=== PATIENT | female | born 1990 | race Caucasian/White ===

== ENCOUNTER 2020-01-18 15:43 | Emergency (ER) | payer BC, SELFPAY ==
[2020-01-18 15:59] VITALS: BP 112/75; PULSE 107; RESP 18; TEMP 37.4; O2SAT 100
--- NOTE | 2020-01-18 16:00 | ED.URI ---
HPI - URI/Sore Throat General Chief Complaint: Upper Respiratory Infection Stated Complaint: sore throat/stuffy nose/fatigue/slight cough History of Present Illness HPI Narrative: This is a 29-year-old female comes in complaining of fatigue cough pharyngitis headache not feeling well patient states that she feels warm every now and then and has had some chills at nighttime. Patient denies any nausea vomiting and/or diarrhea Related Data Allergies Allergy/AdvReac Type Severity Reaction Status Date / Time No Known Allergies Allergy Unverified 01/31/19 18:07 Review of Systems Review of Systems: Narrative: CONSTITUTIONAL: Report fever, chills, or sweats. EYES: Denies visual changes, redness, or discharge. ENT: Reports rhinorrhea, congestion, sore throat, or otalgia. CARDIOVASCULAR:Denies chest pain, palpitations, or edema. RESPIRATORY: Reports cough or dyspnea. GASTROINTESTINAL: Denies abdominal pain, nausea, vomiting, or diarrhea. GENITOURINARY: Denies dysuria or hematuria. SKIN:[Denies rash or itching. MUSCULOSKELETAL:Denies back pain, joint pain, or myalgia. NEUROLOGIC: Denies headache, numbness, or weakness. PSYCHIATRIC:Denies anxiety or depression PMFSH Comments At time as signature, I have reviewed and agree with nursing past medical, social, surgical and family history. Please see nursing chart for further information. There is no relevant family history pertinent to the presenting complaint. Exam Narrative: Exam Narrative: GENERAL:Well-appearing, well-nourished, and in no acute distress. HEAD:Normocephalic, atraumatic. EYES: PERRLA and EOMI. ENT: Nares clear, no rhinorrhea or epistaxis. Mucous membranes moist. Postnasal drip slight pharyngeal erythema NECK: Supple. CHEST: Clear to auscultation. No respiratory distress. HEART: Regular rate and rhythm. No murmur heard. Normal peripheral pulses. ABDOMEN: Soft, nontender, nondistended, normal active bowel sounds. EXTREMITIES: Normal range of motion. No edema. SKIN: Warm, dry, no rash. NEURO: No focal deficits. Alert and oriented x3. Course Vital Signs Vital signs: Vital Signs Temperature 99.4 F 01/18/20 15:59 Pulse Rate 107 H 01/18/20 15:59 Respiratory Rate 18 01/18/20 15:59 Blood Pressure 112/75 01/18/20 15:59 Pulse Oximetry 100 01/18/20 15:59 Temperature 99.4 F 01/18/20 15:59 Pulse Rate 107 H 01/18/20 15:59 Respiratory Rate 18 01/18/20 15:59 Blood Pressure 112/75 01/18/20 15:59 Pulse Oximetry 100 01/18/20 15:59 MDM - URI/Sore Throat Differential Diagnosis Differential diagnosis: Likely upper respiratory infection, sinusitis, viral infection, bronchitis and pharyngitis Discharge Plan Discharge Clinical Impression: Pharyngitis Patient Disposition: Home, Self-Care Condition: Stable Instructions: Antibiotic Form, Pharyngitis (ED) Additional Instructions: Your strep test today was negative. A throat culture will be sent to the laboratory for further testing. IF the test is positive, you will receive a phone call within 48 hours and an appropriate antibiotic will be initiated at that time. You will not receive a phone call if the test is negative. Until the throat culture proves otherwise, you should proceed with treating this is as a viral pharyngitis. Salt water gargles may alleviate some of your throat discomfort. Take Tylenol and/or ibuprofen per the package instructions for pain/fever. Go to the ER if your symptoms become worse of if ANY new symptoms develop Prescriptions: New loratadine [Claritin] 10 mg tablet 10 mg PO DAILY PRN (Reason: allergy symptoms) Qty: 30 RF: 0 Follow-up/Referrals: UNKNOWN,DOCTOR [Primary Care Provider] - Stand Alone Forms: Work/School Release IP Time of Disposition: 16:16 Discharge Date/Time: 01/18/20 16:18
== END 2020-01-18 16:18 | disposition home or self-care (01) ==
PROVIDERS: Emergency Provider Nurse Practitioner Family
DX: J02.9 Acute pharyngitis, unspecified (principal)
CPT/HCPCS: 87081; 87880; 99213; G0463

== ENCOUNTER 2023-04-24 13:33 | Outpatient (CLI) | payer OTHER, SELFPAY ==
[2023-04-24 14:24] LABS: Hematocrit 35.4 % (37.0-47.0); Hemoglobin 11.2 g/dL (12.0-15.0); Mean Corpuscular HGB Conc 31.6 g/dl (32-36); Mean Corpuscular Hemoglobin 27.7 pg (26-34); Mean Corpuscular Volume 87.6 fl (80-100); Mean Platelet Volume 11.3 fl (7.4-10.4); Platelet Count Result 265 k/mm3 (150-375); Red Blood Count 4.04 M/mm3 (4.2-5.4); Red Cell Distribution Width 13.5 % (11.5-14.5); White Blood Count 11.1 K/mm3 (4.5-10.0)
[2023-04-25 13:25] LABS: Rapid Plasma Reagin Non-Reactive (NonReactive)
== END 2023-04-24 13:34 | disposition home or self-care (01) ==
PROVIDERS: Visit Provider Obstetrics & Gynecology
DX: Z01.812 Encounter for preprocedural laboratory examination (principal)
CPT/HCPCS: 36415; 85027; 86592; 86850; 86900; 86901

== ENCOUNTER 2023-04-25 10:03 | Inpatient (IN) | payer OTHER, SELFPAY ==
[2023-04-25] VITALS (44 sets, daily range): BP systolic 80–123; BP diastolic 43–76; PULSE 56–97; RESP 16–18; TEMP 36.2–36.4; O2SAT 96–100; BMI 47.2
--- NOTE | 2023-04-25 10:42 | P.PNAN_ITS ---
Anes - Initial Pre Proc Eval Procedure: Operation Date: 04/25/23 12:00 Proposed Procedures p Repeat Section with Tubal Ligation - Madelyn Loza MD Date/Time: 04/25/23 10:42 Surgeon: Madelyn Loza MD Pre Op Diagnosis: Repeat Cesaren Section Patient Data Age: 32 Gender: F Height: 1.5 m Weight: 106 kg Last Vital Signs Pulse 83 04/25/23 10:31 BP 123/69 04/25/23 10:31 Allergies Allergy/AdvReac Type Severity Reaction Status Date / Time No Known Allergies Allergy Verified 04/17/23 13:34 Home Medications Medication Instructions Recorded Confirmed Type loratadine 10 mg tablet (Claritin) 10 mg PO DAILY PRN allergy 01/18/20 04/17/23 Rx symptoms #30 tabs famotidine 20 mg tablet 20 mg PO DAILY 04/17/23 04/17/23 History vits no.126-ferrous fum 1 tablet PO DAILY 04/17/23 04/17/23 History 28 mg iron-folic acid 800 mcg tablet (Classic ) ursodiol 300 mg capsule 300 mg PO BID 04/17/23 04/17/23 History Patient hx anesthesia problems: none Family hx anesthesia problems: none Results Review: All pre-operative results and documents have been reviewed as part of the pre- operative evaluation. PMFSH Family History Family History Father Lung cancer Grandparent Hypertension Social History Social History Substance use: never Spiritual care concerns: No Anes - Eval Final PreProcedure Day of Procedure 04/25/23 10:42 Patient weight: normal and morbidly obese Heart: regular rate and rhythm Lungs: decreased breath sounds Airway: Mallampati scale class II Neurological: alert and oriented Last oral intake: >/= 8 hours ASA classification: III Emergent: no Anesthetic plan: proceed Anesthesia type and monitoring: regional spinal and standard monitoring Results Review: All pre-operative results and documents have been reviewed as part of the pre- operative evaluation. Informed Consent: The patient's anesthetic plan and its attendant risks and benefits were discussed with the patient/family/POA. Questions were solicited and answers provided to the satisfaction of the patient/family/POA.
[2023-04-25] MEDS: LACTATED RINGERS 1,000 ML 125 ML IV CONT ×2 (10:55→11:44)
--- NOTE | 2023-04-25 11:29 | WPDHPUPDATE1 ---
History and Physical Update Update Date/Time: 04/25/23 11:29 History and Physical has been reviewed, including an updated exam of the patient. There are NO changes in the patient's condition. Risks, benefits, and alternatives have been discussed and questions answered. Patient agrees to proceed with procedure.
--- NOTE | 2023-04-25 11:30 | PM.IMHP ---
H&P: HPI History of Present Illness Date/Time: 04/25/23 11:30 Chief Complaint: term Narrative: this patient is a 32-year-old female with a term , she is multiparous, she has a previous delivery and desires female sterilization pre we have agreed to perform repeat delivery and bilateral salpingectomy. She understands the risks, benefits, and alternatives. She has completed the informed consent process is ready to proceed. She understands there injuries may occur that result in hospitalization, more surgery, and severe illness. She understands there is risk of hemorrhage infection. She denies any chest pain shortness of breath. She denies any nausea, vomiting, fever chill, chills. She denies any contractions or loss of fluid. Review of Systems Review of Systems: All systems reviewed & are unremarkable except as noted in HPI and below Constitutional: Constitutional: Denies chills, Denies fatigue, Denies fever(s) and Denies weakness Eyes: Eyes: Denies blurry vision, Denies change in vision, Denies loss of peripheral vision, Denies loss of vision, Denies other visual disturbances and Denies eye pain ENT: Denies vertigo, Denies dizziness, Denies hearing loss, Denies mouth pain, Denies nasal obstruction, Denies neck mass and Denies neck pain Cardiovascular: Cardiovascular: Denies chest pain, Denies diaphoresis, Denies syncope, Denies leg edema and Denies dyspnea Respiratory: Respiratory: Denies chest congestion, Denies cough, Denies hemoptysis, Denies dyspnea and Denies wheezing Gastrointestinal: Gastrointestinal: Denies abdominal pain, Denies constipation, Denies diarrhea, Denies nausea and Denies vomiting Genitourinary: Genitourinary: Denies hematuria, Denies change in libido, Denies nocturia, Denies genital lesions, Denies flank pain and Denies urinary urgency Musculoskeletal: Musculoskeletal: Denies abnormal gait, Denies back pain, Denies myalgias, Denies arthralgias, Denies joint swelling, Denies muscle weakness and Denies neck pain Integumentary/Breasts: Skin/Breast: Denies swelling, Denies breast pain, Denies breast mass, Denies dry skin, Denies nipple discharge, Denies unusual bruising and Denies jaundice Neurologic: Denies Neuro-related abnormal movements, Denies Abnormal speech present, Denies abnormal gait, Denies behavioral changes, Denies confusion, Denies vertigo, Denies dizziness, Denies syncope, Denies loss of vision, Denies memory loss, Denies convulsions and Denies weakness Psychiatric: Psychiatric: Denies abnormal sleep pattern, Denies behavioral changes, Denies change in libido, Denies confusion, Denies depression, Denies anhedonia and Denies memory loss Endocrine: Endocrine: Reports no additional endocrine complaints, Denies change in libido and Denies fatigue Hematologic/Lymphatic: Hematologic/Lymphatic: Reports no additional hematologic/lymphatic complaints Allergic/Immunologic: Allergic/Immunologic: Reports no additional allergic/immunologic complaints and Denies wheezing PMFSH Family History Family History Father Lung cancer Grandparent Hypertension Social History Social History Smoking status: Never smoker Second hand tobacco smoke exposure: Yes Substance use: never Lack of Transportation: No Lack of Food: Never True Current Housing: I Have Housing Concerned About Future Housing: No Difficulty Paying Gas/Electric Bills: No Difficulty Paying for Meds: No Currently Unemployed: No Education: High School Diploma/GED Difficulty w/ Childcare or Family Care: No Spiritual care concerns: No Meds Home Medications and Allergies Home Medications Medication Instructions Recorded Confirmed Type loratadine 10 mg tablet (Claritin) 10 mg PO DAILY PRN allergy 01/18/20 04/17/23 Rx symptoms #30 tabs famotidine 20 mg tablet 20 mg
--- NOTE | 2023-04-25 11:32 | PC.NURSE ---
1112 - Introductions were made and mother shared how she would like to feed her baby with exclusive along with her past experience having breastfed her first two for 2 years. Encouraged mother to place infant [id number] until the first feeding if is stable if possible. Discussed the possibility of separation related to C/S and BTL. Encouraged [id number] when able to allow infant time to explore parent's chest using instincts. Education was shared on how to protect her milk supply with latching and/or using hand expression to remove milk if infant doesn't latch in the first hour, then finger feed colostrum to the infant to preserve breast focus. Mother states she understands how to hand express human milk. Resources provided with educational trifold for bonding and feeding infant. Parents voiced understanding of information and to call if there is a request for assistance.
[2023-04-25] MEDS: ceFAZolin 2 GM/D5W 50 ML 2 GM/50 ML BAG IVPB (11:44)
[2023-04-25] MEDS: KETOROLAC 30 MG/ML VIAL (*BKC) IV PUSH ×2 (12:35→15:55)
--- NOTE | 2023-04-25 12:40 | W.PM.PROC2 ---
Procedure Note - Detailed Date of Procedure 04/25/23 Pre-op Diagnosis Repeat Cesaren Section female sterilization Post-op Diagnosis Same Procedure Performed Low-transverse section, bilateral salpingectomy Surgeon Madelyn Loza MD Anesthesia Spinal Indications female sterilization, term with previous delivery Findings Normal gestational maternal anatomy, average size infant, normal Apgars. Description of Procedure The patient was taken the operating room. She was prepped and draped in dorsal supine position with a leftward tilt. This was done after spinal anesthetic was applied. A low-transverse skin incision was made and carried down till of the fascia with the knife. The fascial incision was made with the knife. The fascial incision was extended laterally with Reilly scissors. The fascia was tented upward superiorly and inferiorly the rectus muscles were dissected off bluntly. The rectus muscles were the midline. The preperitoneal fat and peritoneum were dissected open bluntly at the superior aspect of the rectus muscles. The peritoneal incision was extended superior and inferior with good position of bladder. The uterine incision was made with a scalpel down to the level of the amniotic cavity. The amniotic cavity was entered bluntly. The was delivered. The cord was clamped and cut and the was handed off to waiting pediatric staff. Cord bloods were obtained. The placenta was removed manually. The uterus was exteriorized. The uterus was cleared of all clots, debris and membranes. The uterus was closed in 0 Vicryl running lock fashion. An imbricating over a was placed along the incision line as well. Each fallopian tube was grasped and raised with a John. With from the underlying venous structures. The mesosalpinx between the tube and the rest the adnexa was cauterized and transected with LigaSure cautery. It was performed from the distal tube near the ovary in a stepwise fashion towards the cornua. The tube at the cornua was cauterized transected with LigaSure cautery. This was performed in a bilateral fashion. The uterus was returned to the abdomen. The gutters were cleared of all clots and debris. The fascia was closed with 0 Vicryl running fashion. The subcutaneous tissue was irrigated pinpoint bleeders were cauterized. The skin was closed with subcuticular absorbable georgina. The skin incision line was covered with glue. The patient tolerated the procedure well. She has taken recovery room in stable condition. Sponge lap and needle counts were correct x2. Complications No immediate complications Condition Stable Disposition PACU
[2023-04-25] MEDS: ONDANSETRON INJ 4 MG/2 ML VIAL IV PUSH (14:00)
[2023-04-25] MEDS: OXYTOCIN 30 UNITS/NS 500 ML 30 UNITS/500 ML BAG 125 UNITS IV CONT (14:32)
[2023-04-25] MEDS: SIMETHICONE 80 MG TAB.CHEW PO (15:55)
[2023-04-25] MEDS: DEXTROSE 5%/0.45% SOD CHL 1,000 ML 125 ML IV CONT (16:45)
[2023-04-25] MEDS: HYDROcodone/acetaminophen (*CRX) 5-325 MG TABLET 1 TAB PO ×2 (19:38→23:25)
[2023-04-25] MEDS: IBUPROFEN 600 MG TABLET PO (23:25)
[2023-04-26 04:20] VITALS: BP 113/66; PULSE 71; RESP 16; TEMP 36.2
[2023-04-26] MEDS: HYDROcodone/acetaminophen (*CRX) 5-325 MG TABLET 1 TAB PO ×4 (04:33→17:00)
[2023-04-26] MEDS: SIMETHICONE 80 MG TAB.CHEW PO ×3 (04:33→13:45)
[2023-04-26 04:38] LABS: Basophils Percent Auto 0.2 % (0.2-1.2); Eosinophils Absolute Auto 0.1 K/mm3 (0-0.3); Eosinophils Percent Auto 0.4 % (0-4.4); Hematocrit 31.1 % (37.0-47.0); Hemoglobin 9.9 g/dL (12.0-15.0); Immature Granulocyte Absolute 0.12 K/mm3 (0.00-0.031); Immature Granulocyte Percent A 0.7 % (0-0.5); Lymphocytes Absolute Auto 2.77 K/mm3 (0.9-3.2); Lymphocytes Percent Auto 17.2 % (18.3-44.2); Mean Corpuscular HGB Conc 31.8 g/dl (32-36); Mean Corpuscular Hemoglobin 27.6 pg (26-34); Mean Corpuscular Volume 86.6 fl (80-100); Mean Platelet Volume 11.5 fl (7.4-10.4); Monocytes Absolute Auto 1.3 K/mm3 (0.1-0.6); Monocytes Percent Auto 7.8 % (2.6-8.5); Neutrophils Absolute Auto 11.8 K/mm3 (1.3-6.7); Neutrophils Percent Auto 73.7 % (45.5-73.1); Platelet Count Result 228 k/mm3 (150-375); Red Blood Count 3.59 M/mm3 (4.2-5.4); Red Cell Distribution Width 13.3 % (11.5-14.5); White Blood Count 16.1 K/mm3 (4.5-10.0)
--- NOTE | 2023-04-26 06:42 | PM.OBPNVD ---
OB - PN: Subj Subjective Date/time seen: 04/26/23 06:42 Interval history: doing well pain managed flatus present desires discharge OB - PN: Obj Data Labs 04/26/23 04:29 Labs: Laboratory Results - last 24 hr 04/26/23 04:29 WBC 16.1 H RBC 3.59 L Hgb 9.9 L Hct 31.1 L MCV 86.6 MCH 27.6 MCHC 31.8 L RDW 13.3 Plt Count 228 MPV 11.5 H Immature Gran % (Auto) 0.7 H Neut % (Auto) 73.7 H Lymph % (Auto) 17.2 L [place] % (Auto) 7.8 Eos % (Auto) 0.4 Baso % (Auto) 0.2 Lymph # (Auto) 2.77 [place] # (Auto) 1.3 H Eos # (Auto) 0.1 Baso # (Auto) 0.0 Abs Immat Gran (auto) 0.12 H Absolute Neuts (auto) 11.8 H Absolute Nucleated RBC 0.0 Nucleated RBC % 0.0 OB - PN A/P Plan day: 2 Plan: routine care and discharge home Time Spent With Patient Time: Total time spent is greater than 50% in coordination of care (as documented) at patient's floor/unit and/or counseling patient: Review of Systems Review of Systems: All systems reviewed & are unremarkable except as noted in HPI and below Exam Const: General: cooperative and healthy appearing Chest: Chest palpation & inspection: normal inspection of the chest Resp: Effort & Inspection: normal respiratory effort and able to speak in complete sentences Cardio: Rate: regular rate Rhythm: regular rhythm GI: Other: Incision CDI Skin: General skin exam: normal color Neuro: General: patient oriented x3 Extrem: Right lower extremity: edema (trace) Left lower extremity: edema (trace) Psych: Appearance: grossly normal
--- NOTE | 2023-04-26 06:46 | PM.OBDSVD ---
DS: Admitting Diagnosis Discharge Date 04/26/23 Admitting Diagnosis repeat section, sterilization DS: Discharge Diagnosis Discharge Diagnosis (1) delivery delivered: Code(s): O82 - Encounter for delivery without indication Status: Acute (2) Encounter for female sterilization procedure: Code(s): Z30.2 - Encounter for sterilization Status: Acute OB - DS: Summary OB Procedures : None OB Procedures Intrapartum: OB Procedures: : P.P. tubal ligation Peripartum Data Procedures: Procedures Operation Date: 04/25/23 12:00 Actual Procedure Side Surgeon p Repeat Section with Tubal Ligation Madelyn Loza MD Time Spent with Patient Time attestation: Total time spent providing and/or coordinating discharge services: DS: Data Data Completed and Pending Pending studies at discharge: Pending at discharge 04/25/23 13:02 Surgical [PTH] Routine Labs on day of discharge: Labs from last 24 hours 04/26/23 04:29 WBC 16.1 H RBC 3.59 L Hgb 9.9 L Hct 31.1 L MCV 86.6 MCH 27.6 MCHC 31.8 L RDW 13.3 Plt Count 228 MPV 11.5 H Immature Gran % (Auto) 0.7 H Neut % (Auto) 73.7 H Lymph % (Auto) 17.2 L [place] % (Auto) 7.8 Eos % (Auto) 0.4 Baso % (Auto) 0.2 Lymph # (Auto) 2.77 [place] # (Auto) 1.3 H Eos # (Auto) 0.1 Baso # (Auto) 0.0 Abs Immat Gran (auto) 0.12 H Absolute Neuts (auto) 11.8 H Absolute Nucleated RBC 0.0 Nucleated RBC % 0.0 Discharge Plan Discharge Attending physician on discharge: Madelyn Loza Discharging Clinician: Chelle Arreola Patient Disposition: Home, Self-Care Activity: pelvic rest Diet: regular Patient Instructions: Antibiotic Form Stand Alone Forms: General Discharge Information Follow-up/Referrals: Madelyn Loza MD [Physician] - 1 Week Discharge Medications: New hydrocodone-acetaminophen 5-325 mg Tablet 1 tablet PO Q3H PRN (Reason: Moderate Pain (4-6)) Qty: 30 0RF Continued loratadine [Claritin] 10 mg tablet 10 mg PO DAILY PRN (Reason: allergy symptoms) Qty: 30 0RF Classic 28 mg iron- 800 mcg Tablet 1 tablet PO DAILY Discontinued famotidine 20 mg Tablet 20 mg PO DAILY ursodiol 300 mg Capsule 300 mg PO BID Date of admission: 04/25/23 10:03 Primary Care Provider: UNKNOWN,DOCTOR Admitting Provider: Madelyn Loza Attending physician on admission: Madelyn Loza Condition: Stable
--- NOTE | 2023-04-26 06:48 | P.PNOB_ITS ---
OB - PN: Subj Subjective Date/time seen: 04/26/23 06:48 delete OB - PN: Obj Data Labs 04/26/23 04:29 Labs: Laboratory Results - last 24 hr 04/26/23 04:29 WBC 16.1 H RBC 3.59 L Hgb 9.9 L Hct 31.1 L MCV 86.6 MCH 27.6 MCHC 31.8 L RDW 13.3 Plt Count 228 MPV 11.5 H Immature Gran % (Auto) 0.7 H Neut % (Auto) 73.7 H Lymph % (Auto) 17.2 L [place] % (Auto) 7.8 Eos % (Auto) 0.4 Baso % (Auto) 0.2 Lymph # (Auto) 2.77 [place] # (Auto) 1.3 H Eos # (Auto) 0.1 Baso # (Auto) 0.0 Abs Immat Gran (auto) 0.12 H Absolute Neuts (auto) 11.8 H Absolute Nucleated RBC 0.0 Nucleated RBC % 0.0 OB - PN A/P Time Spent With Patient Time: Total time spent is greater than 50% in coordination of care (as documented) at patient's floor/unit and/or counseling patient:
[2023-04-26 07:50] VITALS: BP 93/55; PULSE 75; RESP 18; TEMP 36.3; O2SAT 100
[2023-04-26] MEDS: IBUPROFEN 600 MG TABLET PO ×2 (08:48→19:57)
[2023-04-26] MEDS: FAMOTIDINE 20 MG TABLET PO (08:49)
[2023-04-26] MEDS: POLYSACCHARIDE IRON COMPLEX 150 MG CAPSULE PO ×2 (08:49→17:00)
[2023-04-26] MEDS: MULTIVIT/MIN/PREN/FOL AC/IRON TABLET 1 TAB PO (08:49)
[2023-04-26] MEDS: DOCUSATE SODIUM 100 MG CAPSULE PO ×2 (08:50→17:00)
--- NOTE | 2023-04-26 10:06 | WPDANLDPN2 ---
Anes-Prog Note L&D Date/Time: 04/26/23 10:06 Comfortable throughout: section Neuraxial method: spinal Epidural/Spinal procedure site: clean & non-tender Neuro status: Neuro function grossly intact. Cardiovascular status: normal Respiratory status: normal Airway patency: baseline Mental status: baseline Post-Op hydration status: normal Vital Signs: Last Vital Signs Temp 97.4 F L 04/26/23 07:50 Pulse 75 04/26/23 07:50 Resp 18 04/26/23 07:50 BP 93/55 L 04/26/23 07:50 Pulse Ox 100 04/26/23 07:50 O2 Del Method Room Air 04/25/23 14:45 Pain score (VAS): 0/10 I/O: Intake & Output 04/25/23 04/26/23 04/26/23 23:59 07:59 15:59 Intake Total 1000 Output Total 200 1600 Balance -200 -600 Post-procedural complaints: none Patient feedback: Patient satisfied with anesthetic care.
--- NOTE | 2023-04-26 10:06 | WPDANLDNPN2 ---
Anes-Prog Note L&D-Neuraxial Date/Time: 04/26/23 10:06 Neuraxial medications: intrathecal PF morphine Opiod-related complaints: none Patient feedback: Patient satisfied with post-operative pain management.
[2023-04-26 12:10] VITALS: BP 104/59; PULSE 78; RESP 18; TEMP 36.8; O2SAT 98
--- NOTE | 2023-04-26 15:43 | PC.NURSE ---
[id number] Mother verbalizes she is able to independently latch with appropriate positioning/alignment. She denies any nipple discomfort and is responsively . is currently meeting outcomes for weight, output, jaundice and feeding frequencies of 8-12 times in 24 hours. Mother declines any additional assistance/education at this time. Mother is encouraged to call for assistance if her doesn?t latch or there is discomfort with latching. Mother voiced understanding of information shared and the mom reminded of the mom/baby guide for an additional resource. Reported to the primary RN.
[2023-04-26] MEDS: HYDROcodone/acetaminophen (*CRX) 10-325 MG TABLET 1 TAB PO ×2 (19:58→23:12)
[2023-04-26 20:00] VITALS: BP 117/73; PULSE 82; RESP 16; TEMP 36.8; O2SAT 100
[2023-04-27] MEDS: HYDROcodone/acetaminophen (*CRX) 5-325 MG TABLET 1 TAB PO ×6 (03:15→21:10)
[2023-04-27] MEDS: IBUPROFEN 600 MG TABLET PO ×3 (03:15→17:48)
[2023-04-27 08:00] VITALS: BP 124/60; PULSE 67; RESP 18; TEMP 37; O2SAT 100
[2023-04-27] MEDS: POLYSACCHARIDE IRON COMPLEX 150 MG CAPSULE PO ×2 (08:08→16:07)
[2023-04-27] MEDS: FAMOTIDINE 20 MG TABLET PO (08:08)
[2023-04-27] MEDS: MULTIVIT/MIN/PREN/FOL AC/IRON TABLET 1 TAB PO (08:08)
[2023-04-27] MEDS: DOCUSATE SODIUM 100 MG CAPSULE PO ×2 (08:08→16:07)
--- NOTE | 2023-04-27 08:30 | PM.OBPNVD ---
OB - PN: Subj Subjective Date/time seen: 04/27/23 08:30 Interval history: doing well pain managed flatus present desires discharge Patient comments: no complaints, pain well controlled, incisional pain, tolerating diet and flatus present OB - PN: Obj Data Labs 04/26/23 04:29 OB - PN A/P Plan day: 3 Plan: routine care, discharge home and other Comments: Incision check in one week. Given precautions Time Spent With Patient Time: Total time spent is greater than 50% in coordination of care (as documented) at patient's floor/unit and/or counseling patient: Exam Const: General: comfortable, no acute distress and alert Resp: Effort & Inspection: normal respiratory effort Auscultation: no crackles, no rales and no rhonchi Cardio: Rate: regular rate Heart sounds: no click, no murmurs and no rubs GI: Inspection: non-distended GI Palp: No Tenderness to palpation present (GI) Auscultation: normal bowel sounds Other: Incision - CDI Extrem: General: normal to inspection, no pedal edema and no calf tenderness
--- NOTE | 2023-04-27 08:31 | PM.OBDSVD ---
DS: Admitting Diagnosis Discharge Date 04/27/23 Admitting Diagnosis term OB - DS: Summary OB Procedures : None OB Procedures Intrapartum: Spontaneous Vag Delivery OB Procedures: : None Peripartum Data Procedures: Procedures Operation Date: 04/25/23 12:00 Actual Procedure Side Surgeon p Repeat Section with Tubal Ligation Madelyn Loza MD Time Spent with Patient Time attestation: Total time spent providing and/or coordinating discharge services: DS: Data Data Completed and Pending Completed studies during hospitalization: Pending at discharge 04/25/23 13:02 Surgical [PTH] Routine Discharge Plan Discharge Attending physician on discharge: Madelyn Loza Discharging Clinician: Chelle Arreola Patient Disposition: Home, Self-Care Activity: pelvic rest Diet: regular Patient Instructions: Antibiotic Form Stand Alone Forms: General Discharge Information Follow-up/Referrals: Madelyn Loza MD [Physician] - 1 Week Discharge Medications: New hydrocodone-acetaminophen 5-325 mg Tablet 1 tablet PO Q3H PRN (Reason: Moderate Pain (4-6)) Qty: 30 0RF Continued loratadine [Claritin] 10 mg tablet 10 mg PO DAILY PRN (Reason: allergy symptoms) Qty: 30 0RF Classic 28 mg iron- 800 mcg Tablet 1 tablet PO DAILY Discontinued famotidine 20 mg Tablet 20 mg PO DAILY ursodiol 300 mg Capsule 300 mg PO BID Date of admission: 04/25/23 10:03 Primary Care Provider: UNKNOWN,DOCTOR Admitting Provider: Madelyn Loza Attending physician on admission: Madelyn Loza Condition: Stable
[2023-04-27 19:10] VITALS: BP 124/78; PULSE 80; RESP 16; TEMP 36.8; O2SAT 100
[2023-04-28] MEDS: IBUPROFEN 600 MG TABLET PO (03:05)
[2023-04-28] MEDS: HYDROcodone/acetaminophen (*CRX) 5-325 MG TABLET 1 TAB PO (03:05)
[2023-04-28] MEDS: TETANUS,DIPHTHERIA,AC PERTUSSIS ADULT (0.5 ML) BOOSTRIX IM (05:21)
--- NOTE | 2023-04-28 07:32 | PM.OBPNVD ---
OB - PN: Subj Subjective Date/time seen: 04/28/23 07:32 Interval history: doing well pain managed flatus present desires discharge OB - PN: Obj Data Labs 04/26/23 04:29 OB - PN A/P Time Spent With Patient Time: Total time spent is greater than 50% in coordination of care (as documented) at patient's floor/unit and/or counseling patient: Review of Systems Review of Systems: All systems reviewed & are unremarkable except as noted in HPI and below Exam Const: General: cooperative, healthy appearing and comfortable Resp: Effort & Inspection: normal respiratory effort Cardio: Rate: regular rate Rhythm: regular rhythm GI: Other: Incision CDI Skin: General skin exam: normal color Extrem: Right lower extremity: normal to inspection Left lower extremity: normal to inspection
--- NOTE | 2023-04-28 07:34 | PM.OBDSVD ---
DS: Admitting Diagnosis Discharge Date 04/28/23 Admitting Diagnosis rpt , sterilization DS: Discharge Diagnosis Discharge Diagnosis (1) delivery delivered: Code(s): O82 - Encounter for delivery without indication Status: Acute OB - DS: Summary OB Procedures : None OB Procedures Intrapartum: OB Procedures: : None Peripartum Data Procedures: Procedures Operation Date: 04/25/23 12:00 Actual Procedure Side Surgeon p Repeat Section with Tubal Ligation Madelyn Loza MD Time Spent with Patient Time attestation: Total time spent providing and/or coordinating discharge services: DS: Data Data Completed and Pending Completed studies during hospitalization: Pending at discharge 04/25/23 13:02 Surgical [PTH] Routine Discharge Plan Discharge Attending physician on discharge: Madelyn Loza Discharging Clinician: Chelle Arreola Patient Disposition: Home, Self-Care Activity: pelvic rest Diet: regular Discharge Instructions: Education: Mom and Baby Guide Given to: Mother Follow-Up: Call your delivering provider's office for an appointment to be seen in: 1 Week Mom and baby should come to the [facility] for the follow-up appointment. Appointment Date/Time: April 29, 2023 at 11:00 am What to expect at your follow-up visit: Blood Pressure Check Physical Assessment Call [phone] if you are unable to keep your appointment time. BREAST CARE: * Wear a snug supportive bra. * For engorgement discomfort: Breast Feeding: * Apply warm moist washcloths * Express milk as needed to relieve engorgement * Wear loose clothing * For sore nipples: * Identify correct latch-on * Apply warm moist washcloths before and after nursing * Air dry nipples after nursing * May apply Lansinoh cream to nipples ABDOMINAL INCISION: (if applicable) * Allow incision to air dry * Do NOT use lotions for powders on your incision * When showering, allow soap and water to run over the incision, but do not wash incision EPISIOTOMY/PERINEAL CARE: * Until bleeding stops, use your juarez bottle after urinating * Change your pad frequently throughout the day * No tub baths until seen by your physician - You may shower ACTIVITY: * Rest as much as possible. * Do not exercise or lift anything heavier than your baby (such as laundry or other children.) * Avoid stairs or driving as much as possible. * Do not put anything into the vagina. No douching, tampons, or sexual activity until seen by physician. NOTIFY PHYSICIAN IF YOU HAVE ANY QUESTIONS OR IF ANY OF THE FOLLOWING SYMPTOMS OCCUR: * If your incision becomes red, swollen, or more painful than what you have experienced in the hospital. * If your vaginal bleeding becomes foul smelling. * If your vaginal bleeding becomes more heavy than a period or if your bleeding changes from pink to bright red. However, you may pass an occasional walnut-sized clot once or twice for the first week . * If you experience a sharp, shooting pain in your calves. * If you discover a hard, reddened area on your breast or if you experience flu-like symptoms. DIET: * Eat regular, well-balanced meals. * Drink plenty of fluids daily. Patient Instructions: Antibiotic Form Stand Alone Forms: General Discharge Information Follow-up/Referrals: Madelyn Loza MD [Physician] - 1 Week Discharge Medications: New hydrocodone-acetaminophen 5-325 mg Tablet 1 tablet PO Q3H PRN (Reason: Moderate Pain (4-6)) Qty: 30 0RF Continued loratadine [Claritin] 10 mg tablet 10 mg PO DAILY PRN (Reason: allergy symptoms) Qty: 30 0RF Classic 28 mg iron- 800 mcg Tablet 1 tablet PO DAILY Discontinued famotidine 20 mg Tablet 20 mg PO DAILY ursodiol 300 mg Capsule 300 mg PO BID
[2023-04-28 07:40] VITALS: BP 140/81; PULSE 69; RESP 18; TEMP 36.9; O2SAT 98
[2023-04-29 11:26] VITALS: BP 109/74; PULSE 79; RESP 18; TEMP 37.3; O2SAT 100
== END 2023-04-28 11:50 | disposition home or self-care (01) | DRG 540 ==
LOC: ANHLDR 10:12 → ANHOB2 15:30
PROVIDERS: Admitting Provider Obstetrics & Gynecology; Visit Provider Obstetrics & Gynecology
PROC: 10D00Z1 Extraction of Products of Conception, Low, Open Approach (ICD-10-PCS; CPT 59514; principal; 2023-04-25 12:00)
DX: O34.211 Maternal care for low transverse scar from previous cesarean delivery (principal); Z30.2 Encounter for sterilization; Z37.0 Single live birth; Z3A.37 37 weeks gestation of pregnancy
CPT/HCPCS: 36415; 85025; 88302; 90715; A9270; J0690; J1100; J1885; J2274; J2405; J2590; J7120

== ENCOUNTER 2023-09-29 17:36 | Emergency (ER) | payer OTHER, SELFPAY ==
[2023-09-29 17:55] VITALS: BP 132/74; PULSE 94; RESP 16; TEMP 36.8; O2SAT 97
--- NOTE | 2023-09-29 19:18 | ED.URI ---
HPI - URI/Sore Throat General Chief Complaint: Upper Respiratory Infection Stated Complaint: Cough Time Seen by Provider: 09/29/23 18:39 Source: patient and RN notes reviewed Mode of arrival: ambulatory Limitations: no limitations History of Present Illness HPI Narrative: Patient presents today complaining of 5 day history of cough, congestion, postnasal drip. She is also reporting some diarrhea that used to be 3-4 times per day that is now once per day. Denies blood or mucus in her stool. Denies vomiting, shortness breath, abdominal pain. She has not tried any hjov-knn-apvvwqe medication for symptoms prior to arrival. She is a nonsmoker. She is currently . Related Data Allergies Allergy/AdvReac Type Severity Reaction Status Date / Time No Known Allergies Allergy Verified 09/29/23 18:49 Review of Systems Review of Systems: CONSTITUTIONAL: Denies body aches, fever, chills, or sweats. EYES: Denies visual changes, redness, or discharge. ENT: Denies rhinorrhea, sore throat, or otalgia.+ congestion, postnasal drip CARDIOVASCULAR: Denies chest pain, palpitations, or edema. RESPIRATORY: Denies dyspnea.+ cough GASTROINTESTINAL: Denies abdominal pain, nausea, vomiting.+ diarrhea GENITOURINARY: Denies dysuria or hematuria. SKIN: Denies rash, itching, or wounds. MUSCULOSKELETAL: Denies back pain, joint pain, or myalgia. NEUROLOGIC: Denies headache, numbness, tingling, or weakness. PSYCH: Denies depression or anxiety. [facility] Family History Family History Father Lung cancer Grandparent Hypertension Social History Social History Smoking status: Never smoker Second hand tobacco smoke exposure: Yes Substance use: never Lack of Transportation: No Lack of Food: Never True Current Housing: I Have Housing Concerned About Future Housing: No Difficulty Paying Gas/Electric Bills: No Difficulty Paying for Meds: No Currently Unemployed: No Education: High School Diploma/GED Difficulty w/ Childcare or Family Care: No Spiritual care concerns: No Comments At time of signature, I have reviewed and agree with nursing past medical, surgical, social and family history unless otherwise noted. Please see nursing chart for further information. There is no relevant family history pertinent to the presenting complaint Exam Narrative: GENERAL: Well-appearing, well-nourished, and in no acute distress. HEAD: Normocephalic, atraumatic. EYES: EOMI. No redness or drainage. Conjunctivae normal. ENT: Mucous membranes pink and moist. Nares congested. No rhinorrhea. TMs normal bilaterally. Throat normal. Uvula midline. NECK: Normal AROM. Supple. No lymphadenopathy. CHEST: No respiratory distress. Clear to auscultation. HEART: Regular rate and rhythm. No murmur appreciated. EXTREMITIES: Normal range of motion. No edema. SKIN: Warm, dry, no rash. Capillary refill normal. Normal skin turgor. NEURO: No focal deficits. Alert and oriented x3. Gait steady. PSYCH: Normal affect. No signs of depression or anxiety. Course Course Level of Care: Express Care Visit Vital Signs Vital signs: Vital Signs Temperature 98.2 F 09/29/23 17:55 Pulse Rate 94 09/29/23 17:55 Respiratory Rate 16 09/29/23 17:55 Blood Pressure 132/74 09/29/23 17:55 Pulse Oximetry 97 09/29/23 17:55 Oxygen Delivery Room Air 09/29/23 17:55 Temperature 98.2 F 09/29/23 17:55 Pulse Rate 94 09/29/23 17:55 Respiratory Rate 16 09/29/23 17:55 Blood Pressure 132/74 09/29/23 17:55 Pulse Oximetry 97 09/29/23 17:55 Oxygen Delivery Room Air 09/29/23 17:55 Reviewed MDM - URI/Sore Throat MDM Narrative Medical decision making narrative: Patient's symptoms are likely due to a viral illness. Discussed fenl-iob-lraolcg medication for symptoms in when to go to the ER. No test
== END 2023-09-29 19:29 | disposition home or self-care (01) ==
PROVIDERS: Emergency Provider Nurse Practitioner
DX: B34.9 Viral infection, unspecified (principal)
CPT/HCPCS: 99211; G0463

== ENCOUNTER 2023-10-08 12:51 | Emergency (ER) | payer OTHER, SELFPAY ==
[2023-10-08 13:21] VITALS: BP 146/90; PULSE 98; RESP 18; TEMP 36.9; O2SAT 100
--- NOTE | 2023-10-08 14:30 | ED.GENADULT ---
HPI - General Adult General Chief complaint: Upper Respiratory Infection Stated complaint: Sore Throat Source: patient Mode of arrival: ambulatory Limitations: no limitations History of Present Illness HPI narrative: Patient presents for evaluation of sick symptoms for the last 3 days. She reports a sore throat, nasal congestion, cough, hot flashes, chills, nausea, vomiting, headaches. Her partner and son are here being evaluated for sick symptoms as well. She took some Tylenol and ibuprofen which have seemed to help. She does not smoke. Related Data Home Medications Medication Instructions Recorded Confirmed No Home Medications 10/08/23 10/08/23 Allergies Allergy/AdvReac Type Severity Reaction Status Date / Time No Known Allergies Allergy Verified 10/08/23 13:25 Review of Systems Review of Systems: CONSTITUTIONAL: Reports hot flashes and chills EYES: Denies visual changes, redness, or discharge. ENT: Reports sore throat and nasal congestion. CARDIOVASCULAR: Denies chest pain, palpitations, or edema. RESPIRATORY: Reports cough. Denies shortness of breath. GASTROINTESTINAL: Reports nausea and vomiting. GENITOURINARY: Denies dysuria or hematuria. SKIN: Denies rash or itching. MUSCULOSKELETAL: Denies back pain, joint pain, or myalgia. NEUROLOGIC: Reports headache. Denies numbness, dizziness, or weakness. PSYCHIATRIC: Denies anxiety or depression. [facility] Past Medical History Medical History Past medical history not known due to adoption Surgical History Surgical History History of History of cholecystectomy Family History Family History Father Lung cancer Grandparent Hypertension Social History Social History Smoking status: Never smoker Second hand tobacco smoke exposure: Yes Substance use: never Lack of Transportation: No Lack of Food: Never True Current Housing: I Have Housing Concerned About Future Housing: No Difficulty Paying Gas/Electric Bills: No Difficulty Paying for Meds: No Currently Unemployed: No Education: High School Diploma/GED Difficulty w/ Childcare or Family Care: No Spiritual care concerns: No Exam Narrative: GENERAL: Well-appearing, well-nourished, and in no acute distress. HEAD: Normocephalic, atraumatic. EYES: PERRLA and EOMI. ENT: Nares clear, no rhinorrhea or epistaxis. Mucous membranes moist. bilateral tonsillar enlargement with white exudate. Uvula is midline. Bilateral TMs pearly calixto nonbulging NECK: Supple. No adenopathy or masses. No carotid bruits or JVD CHEST: Clear to auscultation. No respiratory distress. No wheezes rales or rhonchi HEART: Regular rate and rhythm. No murmur heard. Normal peripheral pulses. ABDOMEN: Soft, nontender, nondistended, normal active bowel sounds. EXTREMITIES: Normal range of motion. No edema. SKIN: Warm, dry, no rash. NEURO: No focal deficits. Alert and oriented x3. PSYCH: Normal mood and affect. Course Course Emergency Course: This is a 32-year-old female who presented for evaluation of sick symptoms. COVID, influenza, strep were all negative. Exam is consistent with acute viral syndrome. Increase hydration. Wtxi-hnk-irubzhd agents for symptom management. Follow up with primary provider. Go to the ER for worsening symptoms. Patient in agreement with plan of care. Level of Care: Express Care Visit Vital Signs Vital signs: Vital Signs Temperature 36.9 C 10/08/23 13:21 Pulse Rate 98 10/08/23 13:21 Respiratory Rate 18 10/08/23 13:21 Blood Pressure 146/90 H 10/08/23 13:21 Pulse Oximetry 100 10/08/23 13:21 Oxygen Delivery Room Air 10/08/23 13:21 Temperature 36.9 C 10/08/23 13:21 Pulse Rate 98 10/08/23 13:21 Respiratory Rate 18 10/08/23 13:2
== END 2023-10-08 15:00 | disposition home or self-care (01) ==
PROVIDERS: Emergency Provider Nurse Practitioner
DX: B34.9 Viral infection, unspecified (principal); Z20.822 Contact with and (suspected) exposure to COVID-19
CPT/HCPCS: 87081; 87426; 87804; 87880; 99213; C9803; G0463